=== PATIENT | female | born 1965 | race Caucasian/White ===

== ENCOUNTER → 2016-11-16 | Outpatient (CLI) | payer OTHER | LOC: FIMAGING 08:49 | PROVIDERS: ATTEND Family Medicine | DX: Z12.31 Encounter for screening mammogram for malignant neoplasm of breast (principal) | CPT/HCPCS: G0202 ==

== ENCOUNTER 2017-07-02 10:07 | Emergency (ER) | payer OTHER ==
--- NOTE | 2017-07-02 10:44 | EDPHY ---
General Time Seen by Provider: 07/02/17 10:27 Narrative: CHIEF COMPLAINT: Heel laceration HISTORY OF PRESENT ILLNESS: Patient presents with complaints of heel laceration. She was walking in her home when she slipped, sliding down a metal stair. She sustained a laceration to the back of her leg over the heel. It is stopped bleeding with simple pressure. Moderately painful with walking. No difficulty doing so. No difficulty plantar flex and dorsiflex seen. She denies any glass or debris near by. Tetanus is up-to-date as they are planning to travel to [facility] in 2 days. No other associated complaints or modifying factors. TIME OF INJURY: 1 hr prior to arrival TETANUS STATUS: Less than a year ago MEDICAL/SURGICAL/SOCIAL HISTORY: Uncomplicated medical history. REVIEW OF SYSTEMS: Ten systems reviewed and are negative unless otherwise noted in the HPI EXAMINATION General Appearance: Alert, no distress Head: normocephalic, atraumatic Cardiovascular: Pulses normal throughout. Brisk cap refill Neurological: A&O, sensory symmetric, strength symmetric Skin: Warm and dry, no rash. Curvilinear laceration of the right heel starting medial to midline traveling lateral and inferior in a curved fashion. Total of 5 cm length. Involving the subcutaneous tissue but does not involve the fascia, Achilles tendon or surrounding structures. Neuro intact distally. Extremities: Nontender, no pedal edema DIFFERENTIAL DIAGNOSES: Including but not limited to laceration, complex laceration, laceration with tendon injury MDM: 10:35 a.m. Complex Laceration to the right posterior heel that involves the subcutaneous tissue but does not compromise down to the fascia, tendon or muscle layer. She is fully neuro intact. Her tetanus is up-to-date. I have anesthetize the area and we will proceed with irrigation and closure 11:50 a.m. Complex laceration of the heel has been repaired without difficulty. This was a complex laceration that was well approximated with horizontal mattress of. We discussed light weight-bearing, progressing slowly as tolerated throughout the course of the sutures. Would like to stand for 10-14 days she is traveling [facility] soon. We discussed prophylactic antibiotics, daily wound care and ED precautions. She is comfortable this plan and discharged in stable condition. PROCEDURE: Laceration repair Consent: Verbal Location: Right heel Length of repair: 5 cm, curvilinear Complexity: Complex Layer involvement: Single layer Anesthesia: Local per 1% lidocaine with epinephrine. 12 mL Irrigation: Extensive Debridement: None Procedure description: Following good anesthesia, the wound was copiously irrigated. Wound bed was explored with a sterile glove, and there is no foreign body noted. No evidence of injury to the underlying Achilles or calcaneus. Wound borders were approximated well with good hemostasis. Tolerated well without complication. Suture/Staple material: 7 horizontal mattresses and 1 simple interrupted suture with 4-0 Prolene Wound care: Routine as discussed Suture/Staple removal: 10-14 Days SUPERVISION: This patient was independently evaluated without direct involvement of or examination by the attending physician. ED Precautions: Worsening pain. Erythema, edema, cyanosis, pallor, paresthesia or anesthesia. - History Smoking Status: Never smoked - Objective Vital Signs: Initial Vital Signs Temperature (C) 97.9 F 07/02/17 10:16 Heart Rate 55 L 07/02/17 10:16 Respiratory Rate 16 07/02/17 10:16 Blood Pressure 95/66 L 07/02/17 10:16 O2 Sat (%) 98 07/02/17 10:16 O2 Delivery Mode Room Air Allergies/Adverse Reactions: No Known Allergies Allergy (Unverified 07/02/17 10:15) Home Medications: Medication Instructions Recorded Cephalexin [Keflex (*)] 500 mg PO QID #28 cap 07/02/17 Levothyroxine Sodium 07/02/17 Departure - Departure Disposition: Home, Routine, Self-Care Clinical Impression: Laceration of heel Qualifiers: Encounter type: initial encounter Laterality: right Qualified Code(s): S91.311A - Laceration without foreign body, right foot, initial encounter Condition: Good Instructions: Cephalexin (By mouth), Care For Your Stitches (ED), Laceration ( ED) Additional Instructions: 1. Ice and elevation 2. Keflex as prescribed to completion 3. Ibuprofen or Advil [id number] as needed for pain or swelling 4. Your sutures will need to be removed in 10-14 days Referrals: Physician,Emergency Dept, MD [Medical Doctor] - As per Instructions (10-14 days) Prescriptions: Cephalexin [Keflex (*)] 500 mg PO QID #28 cap
[2017-07-02 12:12] VITALS: BP 145/75
== END 2017-07-02 12:13 | disposition home or self-care (01) ==
PROC: 0HQMXZZ Repair Right Foot Skin, External Approach (ICD-10-PCS; principal; 2017-07-02)
DX: S91.311A Laceration without foreign body, right foot, initial encounter (principal); W18.43XA Slipping, tripping and stumbling without falling due to stepping from one level to another, initial encounter

== ENCOUNTER → 2018-02-08 | Outpatient (CLI) | payer OTHER | LOC: BMCIMAGING 15:13 | PROVIDERS: ATTEND Family Medicine | DX: S89.92XA Unspecified injury of left lower leg, initial encounter (principal) ==